=== PATIENT | female | born 2000 | race Caucasian/White ===

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

== ENCOUNTER 2021-06-23 22:12 | Emergency (ER) | payer MEDICAID ==
[~2021-06-23] VITALS: Ht 149.9 cm; Wt 43.2 kg
[2021-06-23] MEDS ORDERED: AMOXICILLIN 8751 TAB PO (23:30)
[2021-06-23 23:45] VITALS: BP 112/62; PULSE 78; TEMP 98.4
== END 2021-06-23 23:45 | disposition home or self-care (01) ==
LOC: COL.ER 22:12
DX: H66.93 Otitis media, unspecified, bilateral (principal); J39.2 Other diseases of pharynx

== ENCOUNTER 2021-07-02 14:39 | Emergency (ER) | payer MEDICAID ==
[~2021-07-02] VITALS: Ht 149.9 cm; Wt 43.2 kg
[~2021-07-02 14:39] MED LIST changes: +AMOXICILLIN 8751 TAB PO
[2021-07-02 14:54] VITALS: BP 109/70; TEMP 98.4
[2021-07-02 16:42] VITALS: PULSE 93
== END 2021-07-02 16:42 | disposition home or self-care (01) ==
LOC: COL.ER 14:39
DX: U07.1 COVID-19 (principal); Z91.040 Latex allergy status
CPT/HCPCS: J7030

== ENCOUNTER 2021-11-21 18:27 | Emergency (ER) | payer MEDICAID ==
[~2021-11-21] VITALS: Ht 149.9 cm; Wt 43.3 kg
[2021-11-21 18:48] VITALS: TEMP 98.2
[2021-11-21 19:55] VITALS: BP 127/76; PULSE 74
== END 2021-11-21 19:55 | disposition home or self-care (01) ==
LOC: COL.ER 18:27
DX: S60.221A Contusion of right hand, initial encounter (principal); Z91.040 Latex allergy status; Z28.310 Unvaccinated for COVID-19; W23.0XXA Caught, crushed, jammed, or pinched between moving objects, initial encounter; Y92.59 Other trade areas as the place of occurrence of the external cause; Y99.0 Civilian activity done for income or pay

== ENCOUNTER 2022-02-25 10:25 | Emergency (ER) | payer MEDICAID ==
[~2022-02-25] VITALS: Ht 149.9 cm; Wt 42.3 kg
[2022-02-25 10:30] VITALS: BP 105/72; PULSE 81; TEMP 97.9
== END 2022-02-25 11:29 | disposition home or self-care (01) ==
LOC: COL.ER 10:25
DX: S79.912A Unspecified injury of left hip, initial encounter (principal); M25.572 Pain in left ankle and joints of left foot; Z91.040 Latex allergy status; W10.9XXA Fall (on) (from) unspecified stairs and steps, initial encounter; W01.0XXA Fall on same level from slipping, tripping and stumbling without subsequent striking against object, initial encounter